=== PATIENT | male | born 1945 | race Caucasian/White ===

== ENCOUNTER → 2018-02-26 | Day surgery (SDC) | payer MEDICARE ==
[~2018-02-26] MED LIST: BUPIVACAINE/EPINEPHRINE 0.25% 50 ML VIAL ONE; KETOROLAC TROMETHAMINE 30 MG/ML (IVP) VIAL IV PUSH ONE; LACTATED RINGER'S 1000 ML INJ 1,000 ML ONE; MIDAZOLAM HCL 2 MG/2 ML VIAL ONE; ONDANSETRON HCL 4 MG/2 ML VIAL IV PUSH ONE; PROPOFOL 200 MG/20 ML AMP IV ONE; SODIUM CHLOR 0.9% 250 ML BAG IV ONE; VANCOMYCIN 500 MG VIAL ONE; ceFAZolin 2 GM PREMIX 50 ML ONE
--- NOTE | 2018-02-26 14:59 | TN ---
cc: Shane Tejada MD DATE OF SURGERY: 02/26/2018 PREOPERATIVE DIAGNOSIS: Large symptomatic right inguinal hernia. POSTOPERATIVE DIAGNOSES: 1. Large symptomatic right inguinal hernia. 2. Large direct inguinal hernia and small indirect inguinal hernia. PROCEDURE PERFORMED: Open right inguinal hernia repair with mesh. SURGEON: Shane Tejada MD CHEF DE PARTIE: Arcelia Rolle MS-3 ANESTHESIA: General LMA. COMPLICATIONS: None. INDICATION FOR PROCEDURE: Mr. Lund is a pleasant 72-year-old gentleman who had a fairly large, symptomatic right inguinal hernia. He was seen and evaluated in the office and offered elective repair. Risks and benefits of open repair with mesh was discussed with him. He was agreeable. PROCEDURE DETAILS: The patient was identified, brought to the operating room, placed supine on the operating table. After adequate general anesthesia was achieved with LMA, the anterior abdomen and groin were prepped and draped in standard surgical fashion. Marcaine 0.25% was injected in the skin and subcutaneous tissue of the right groin. Transverse incision was made. Dissection was carried down through subcutaneous tissue to the external oblique. The external oblique was identified. The patient was noted to have significant attenuation of the external oblique medially where the hernia was seen protruding out. External oblique was then opened laterally down to where the patient's previous internal ring had existed, but had been blown out by the large direct hernia. Once the external oblique was opened, the cord structures were dissected off the underside on both sides. The patient was noted to have a very large direct hernia. The direct hernia was dissected off the underside of the cord structures. Cord structures were then carefully inspected. The patient had a moderate cord lipoma, which was undisturbed. The patient was found to have a small peritoneal sac at the internal ring, indicating a small indirect hernia. This was dissected off the cord and pushed back into the preperitoneal space. Attention was now directed to the repair. Repair was accomplished using a piece of polypropylene mesh 3 x 6. Mesh was secured medially at Toni's ligament, pubic tubercle, inferior along the shelving edge of the inguinal ligament and superiorly along the conjoint tendon and transversalis fascia. A small slit was made in the mesh and the cord structures were allowed to pass through the mesh. The slit was reapproximated with the 2-0 Prolene suture. With this, the indirect and direct spaces were well covered by mesh and the internal ring was appropriately tightened only to allow a small fingertip through. The wound was copiously irrigated with normal saline solution. Marcaine 0.25% was injected and the external oblique was then closed along the course of its fibers using a 2-0 Vicryl suture. Jin's fascia was closed with a 3-0 Vicryl and skin was closed with a 4-0 Vicryl. The patient tolerated the procedure well, was awakened and brought to the recovery room in stable condition. Shane MD RAGHAVENDRA Grace/MAIRA , 02:36 PM , 02:58 PM
== END | disposition home or self-care (01) ==
LOC: ESDC 11:25
PROVIDERS: ATTEND Surgery Trauma Surgery
DX: K40.90 Unilateral inguinal hernia, without obstruction or gangrene, not specified as recurrent (principal)
CPT/HCPCS: 00830; 49505; C1727; C1781; J0690; J1885; J2250; J2405; J3370; J7050; J7120